=== PATIENT | male | born 1975 | race Caucasian/White ===

== ENCOUNTER 2024-12-30 15:58 | Inpatient (IN) | payer OTHER ==
[~2024-12-30] VITALS: Ht 182.9 cm; Wt 104.5 kg
[2024-12-30 17:17] LABS: BASOPHILS ABSOLUTE AUTO 0.05 K/mm3 (0.00-0.23); BASOPHILS PERCENT AUTO 1 % (0-2); EOSINOPHILS ABSOLUTE AUTO 0.08 K/mm3 (0.00-0.68); EOSINOPHILS PERCENT AUTO 1 % (0-6); Hematocrit 40.3 % (37.0-53.0); Hemoglobin 14.3 g/dL (13.5-17.5); IMMATURE GRAN ABSOLUTE AUTO 0.13 K/mm3 (0.00-0.10); IMMATURE GRAN PERCENT AUTO 2 % (0-1); LYMPHOCYTES ABSOLUTE AUTO 1.16 K/mm3 (0.84-5.20); LYMPHOCYTES PERCENT AUTO 14 % (21-46); MONOCYTES ABSOLUTE AUTO 0.58 K/mm3 (0.16-1.47); MONOCYTES PERCENT AUTO 7 % (4-13); Mean Corpuscular HGB Conc 35.5 g/dL (31.5-36.5); Mean Corpuscular Volume 85 fL (80-100); NEUTROPHILS ABSOLUTE AUTO 6.24 K/mm3 (1.96-9.15); NEUTROPHILS PERCENT AUTO 76 % (41-73); NRBC ABSOLUTE 0.00 K/mm3 (0.00-0.02); NRBC Auto 0.0 /100 WBC (0.0-0.2); Platelet Count 168 K/mm3 (150-400); RDW Coefficient Variation 12.8 % (11.7-14.2); RDW Standard Deviation 39.7 fL (35.1-46.3)
[2024-12-30 17:30] LABS: Prothrombin Time Results 11.5 Sec (9.7-11.5)
[2024-12-30 17:37] LABS: Alanine Aminotransfer (ALT/SGP 133.0 U/L (12-78); Albumin, Blood 3.4 g/dL (3.4-5.0); Albumin/Globulin Ratio 1.2 (0.8-1.8); Anion Gap 11.0 mmol/L (3-11); Aspartate Aminotrans (AST/SGOT 75.0 U/L (12-37); Bilirubin, Total 1.2 mg/dL (0.1-1.0); Blood Urea Nitrogen 14.0 mg/dL (8-24); CO2, Blood 18.0 mmol/L (21-32); Calcium, Blood 7.8 mg/dL (8.5-10.1); Chloride, Blood 110.0 mmol/L (98-108); Creatinine, Blood 0.58 mg/dL (0.60-1.20); Globulin, Blood 2.9 g/dL (2.2-4.0); Glucose, Blood 233.0 mg/dL (70-99); Potassium, Blood 3.2 mmol/L (3.5-5.5); Sodium, Blood 136.0 mmol/L (136-145); Total Protein, Blood 6.3 g/dL (6.4-8.2)
[2024-12-30 17:46] LABS: Source, Urine Clean Catch
[2024-12-30 17:53] LABS: Bilirubin, Urine Neg (Neg); Color, Urine Yellow (P-Yellow); Glucose Qualitative, Urine 4+ (Neg); Ketones, Urine 4+ (Neg); Leukocyte Esterase, Urine Neg (Neg); Protein, Urine 3+ (Neg); Specific Gravity, Urine 1.025 (1.003-1.022); Urobilinogen, Urine 1+ (Normal)
[2024-12-30 18:02] LABS: White Blood Cells, Urine 0-2 /hpf (0-5)
[2024-12-30 18:03] LABS: Red Blood Cells, Urine Not Seen /hpf (0-2)
[2024-12-30] MEDS ORDERED: NS 1,000 ML IV SCH (19:05)
[2024-12-30] MEDS ORDERED: Labetalol HCL 5 MG/ML 4ML Injection (Single Dose) IV PRN (19:05)
[2024-12-30] MEDS ORDERED: FLU VACC TS2025-26(6MOS UP)/PF 45 MCG/0.5 ML SYRINGE IM SCH (19:10)
[2024-12-30 19:29] LABS: pH Blood Venous 7.35 (7.34-7.37)
[2024-12-30 20:05] VITALS: BP 158/93
[2024-12-30 20:14] VITALS: BP 151/96
[2024-12-30] MEDS ORDERED: NS 1,000 ML IV ONE (21:00)
[2024-12-30] MEDS ORDERED: TOCO1000 PO (21:19)
[2024-12-30] MEDS ORDERED: OMEGA-3 FISH O1 EA21 PO (21:21)
[2024-12-30] MEDS ORDERED: ZESTORETIC 20-251 EA PO (21:22)
[2024-12-30] MEDS ORDERED: ASPI81CH PO (21:23)
[2024-12-30 23:10] LABS: U Amphetamine Screen Not Detected; U Barbiturate Screen Not Detected; U Benzodiazapine Screen Not Detected; U Buprenorphine Screen Not Detected; U Cannabinoids Screen DETECTED; U Cocaine Screen Not Detected; U Methadone Screen Not Detected; U Methamphetamine Screen Not Detected; U Opiates Screen Not Detected; U Oxycodone Screen Not Detected; U Phencyclidine Screen Not Detected
[2024-12-30 23:28] VITALS: BP 175/96
[2024-12-31 04:22] VITALS: BP 175/94
[2024-12-31 06:22] LABS: Alanine Aminotransfer (ALT/SGP 128 U/L (12-78); Albumin, Blood 3.9 g/dL (3.4-5.0); Albumin/Globulin Ratio 1.1 (0.8-1.8); Anion Gap 13 mmol/L (3-11); Aspartate Aminotrans (AST/SGOT 53 U/L (12-37); Bilirubin, Total 1.7 mg/dL (0.1-1.0); Blood Urea Nitrogen 13 mg/dL (8-24); CHOL/HDL RATIO 9.5; CO2, Blood 21 mmol/L (21-32); Calcium, Blood 9.3 mg/dL (8.5-10.1); Chloride, Blood 101 mmol/L (98-108); Cholesterol 304 mg/dL (50-200); Creatinine, Blood 0.62 mg/dL (0.60-1.20); Globulin, Blood 3.4 g/dL (2.2-4.0); Glucose, Blood 230 mg/dL (70-99); HDL Cholesterol 32 mg/dL (>39); LDL/HDL RATIO 6.7; Low Density Lipoprotein Chol 216 mg/dL (0-110); Potassium, Blood 3.2 mmol/L (3.5-5.5); Sodium, Blood 132 mmol/L (136-145); Total Protein, Blood 7.3 g/dL (6.4-8.2); Triglycerides 282 mg/dL (30-160); Very Low Density Lipoprot Chol 56 mg/dL (6-32)
--- NOTE | 2024-12-31 06:26 | NUR ---
ADMISSION AND SHIFT SUMMARY ASSUMED CARE AT 1999. A/Ox4, ELEVATED SBP, OTHER VSS ON RA. NORMAL SINUS RHYTHM ON TELE. PT REPORTS CONTINUED BLURRY VISION AND REDUCED PERIPHERAL VISION AT R EYE. NO OTHER DEFICITS NOTED; SCORING 1 ON NIH SCALE. PT UP TO RESTROOM WITH SBA. PT STATED, "I DON'T TAKE CARE OF MYSELF", DENIES HAVING A PRIMARY CARE PROVIDER. PT CALLS APPROPRIATELY, CALL LIGHT IN REACH.
[2024-12-31] MEDS ORDERED: Insulin Human Lispro 100 Units/ML 3ML Syringe SC SCH (07:30)
[2024-12-31 07:34] VITALS: BP 185/97
[2024-12-31] MEDS ORDERED: Enoxaparin 40 MG/0.4 ML SYR SC SCH (09:00)
--- NOTE | 2024-12-31 11:45 | NUR ---
PATIENTS FIRST BLOOD SUGAR FOR THIS NURSE IS 386. DR. CORTES NOTIFIED AND RECOMMENDED STAYING ON THE SLIDING SCALE PATIENT IS NEW TO MEDICATION AND SUGAR CHECKS. PATIENT ATE A REGULAR BREAKFAST THIS AM
[2024-12-31] MEDS ORDERED: MetFORMIN HCl 500 mg PO SCH (14:00)
[2024-12-31 15:15] VITALS: BP 158/100
--- NOTE | 2024-12-31 17:17 | NUR ---
PATIENT RESTED IN BED TODAY, UP TO BATHROOM AND SHOWER TOLERATED. COOPERATIVE WITH CARE. REVIEWED MEDICATIONS WITH PATIENT. CALL LIGHT WITHIN REACH. NO CONCERNS
[2024-12-31 20:41] VITALS: BP 167/104
[2024-12-31] MEDS ORDERED: Insulin Glargine 100 Unit/ML 3 ML SYR SC SCH (21:00)
[2025-01-01 00:19] VITALS: BP 166/93
[2025-01-01 04:46] VITALS: BP 173/107
[2025-01-01 05:31] LABS: Alanine Aminotransfer (ALT/SGP 122.0 U/L (12-78); Albumin, Blood 3.9 g/dL (3.4-5.0); Albumin/Globulin Ratio 1.1 (0.8-1.8); Anion Gap 11.0 mmol/L (3-11); Aspartate Aminotrans (AST/SGOT 53.0 U/L (12-37); Bilirubin, Total 1.6 mg/dL (0.1-1.0); Blood Urea Nitrogen 16.0 mg/dL (8-24); CO2, Blood 23.0 mmol/L (21-32); Calcium, Blood 9.5 mg/dL (8.5-10.1); Chloride, Blood 103.0 mmol/L (98-108); Creatinine, Blood 0.67 mg/dL (0.60-1.20); Globulin, Blood 3.5 g/dL (2.2-4.0); Glucose, Blood 154.0 mg/dL (70-99); Magnesium, Blood 2.0 mg/dL (1.6-2.4); Potassium, Blood 3.7 mmol/L (3.5-5.5); Sodium, Blood 133.0 mmol/L (136-145); Total Protein, Blood 7.4 g/dL (6.4-8.2)
--- NOTE | 2025-01-01 06:11 | NUR ---
A/Ox4, ELEVATED BP, OTHER VSS ON RA. PT DENIES PAIN, SOB, NAUSEA. SCORING 1 ON NIHSS DUE TO CONTINUED PERIPHERAL VISION LOSS AT R EYE. PT REPORTS BLURRY VISION WELL. PT CONCERNED ABOUT HIS LOSS OF APPETITE. NO ACUTE CHANGES OVERNIGHT. PT CALLS APPROPRIATELY, CALL LIGHT IN REACH.
[2025-01-01] MEDS ORDERED: Labetalol HCL 5 MG/ML 4ML Injection (Single Dose) IV PRN (06:25)
[2025-01-01 07:11] VITALS: BP 153/92
[2025-01-01] MEDS ORDERED: AMLO10 PO (11:43)
[2025-01-01] MEDS ORDERED: CLOP75 PO (11:43)
[2025-01-01] MEDS ORDERED: JARDIANCE10 MG PO (11:43)
[2025-01-01] MEDS ORDERED: ATOR80 PO (11:43)
[2025-01-01] MEDS ORDERED: BASAGLAR K100 UNIT/1 SC (11:44)
[2025-01-01] MEDS ORDERED: HUMALOG JU100 UNIT/2 (11:44)
[2025-01-01] MEDS ORDERED: LOSA25 PO (11:45)
[2025-01-01] MEDS ORDERED: SPIR25 PO (11:45)
[2025-01-01] MEDS ORDERED: METF500 PO (11:45)
--- NOTE | 2025-01-01 12:30 | NUR ---
pt discharged the pt verbalized understanding of the dc instructions, the pt was given prescription for his meds [facility] the pt declined a wheelchair transport and ambulated out steady on his feet accompanied by the viscera washer
== END 2025-01-01 15:36 | disposition home or self-care (01) | DRG 66 ==
LOC: ER 15:58 → MEDS 15:59
PROVIDERS: Nurse Practitioner Acute Care; Student in an Organized Health Care Education/Training Program; ADMIT Student in an Organized Health Care Education/Training Program
DX: I63.81 Other cerebral infarction due to occlusion or stenosis of small artery (principal); I10 Essential (primary) hypertension; E87.6 Hypokalemia; E88.810 Metabolic syndrome; R29.701 NIHSS score 1; E78.5 Hyperlipidemia, unspecified; K70.0 Alcoholic fatty liver; H53.47 Heteronymous bilateral field defects; E11.65 Type 2 diabetes mellitus with hyperglycemia; I25.2 Old myocardial infarction; Z87.891 Personal history of nicotine dependence; Z91.148 Patient's other noncompliance with medication regimen for other reason
CPT/HCPCS: 36415; 70551; 76705; 80053; 80061; 81001; 82010; 82803; 82947; 83036; 83605; 83735; 84439; 84443; 84481; 84484; 85025; 85610; 85730; 93005; 93010; 93306; 96372; 99285-25; A9270; G0378; J1650; J1815; J7030

== ENCOUNTER 2025-01-06 12:29 | Inpatient (IN) | payer OTHER ==
[2025-01-06] VITALS (12 sets, daily range): BP systolic 129–160; BP diastolic 80–96
[~2025-01-06] VITALS: Ht 182.9 cm; Wt 103.5 kg
[~2025-01-06 12:29] MED LIST: AMLO10 PO; ASPI81CH PO; ATOR80 PO; BASAGLAR K100 UNIT/1 SC; CLOP75 PO; HUMALOG JU100 UNIT/2; JARDIANCE10 MG PO; LOSA25 PO; METF500 PO; OMEGA-3 FISH O1 EA21 PO; SPIR25 PO; TOCO1000 PO; ZESTORETIC 20-251 EA PO
[2025-01-06 13:16] LABS: BASOPHILS ABSOLUTE AUTO 0.06 K/mm3 (0.00-0.23); BASOPHILS PERCENT AUTO 1 % (0-2); EOSINOPHILS ABSOLUTE AUTO 0.04 K/mm3 (0.00-0.68); EOSINOPHILS PERCENT AUTO 0 % (0-6); Hematocrit 42.3 % (37.0-53.0); Hemoglobin 15.6 g/dL (13.5-17.5); IMMATURE GRAN ABSOLUTE AUTO 0.11 K/mm3 (0.00-0.10); IMMATURE GRAN PERCENT AUTO 1 % (0-1); LYMPHOCYTES ABSOLUTE AUTO 1.81 K/mm3 (0.84-5.20); LYMPHOCYTES PERCENT AUTO 16 % (21-46); MONOCYTES ABSOLUTE AUTO 1.56 K/mm3 (0.16-1.47); MONOCYTES PERCENT AUTO 14 % (4-13); Mean Corpuscular HGB Conc 36.9 g/dL (31.5-36.5); Mean Corpuscular Volume 83 fL (80-100); NEUTROPHILS ABSOLUTE AUTO 7.45 K/mm3 (1.96-9.15); NEUTROPHILS PERCENT AUTO 68 % (41-73); NRBC ABSOLUTE 0.00 K/mm3 (0.00-0.02); NRBC Auto 0.0 /100 WBC (0.0-0.2); Platelet Count 293 K/mm3 (150-400); RDW Coefficient Variation 11.9 % (11.7-14.2); RDW Standard Deviation 36.4 fL (35.1-46.3)
[2025-01-06 14:01] LABS: Alanine Aminotransfer (ALT/SGP 53.0 U/L (12-78); Albumin, Blood 3.5 g/dL (3.4-5.0); Albumin/Globulin Ratio 0.9 (0.8-1.8); Anion Gap 22.0 mmol/L (3-11); Aspartate Aminotrans (AST/SGOT 25.0 U/L (12-37); Bilirubin, Total 1.6 mg/dL (0.1-1.0); Blood Urea Nitrogen 30.0 mg/dL (8-24); CO2, Blood 16.0 mmol/L (21-32); Calcium, Blood 9.5 mg/dL (8.5-10.1); Chloride, Blood 92.0 mmol/L (98-108); Creatinine, Blood 1.33 mg/dL (0.60-1.20); Globulin, Blood 3.9 g/dL (2.2-4.0); Glucose, Blood 199.0 mg/dL (70-99); Potassium, Blood 3.5 mmol/L (3.5-5.5); Sodium, Blood 126.0 mmol/L (136-145); Total Protein, Blood 7.4 g/dL (6.4-8.2)
[2025-01-06] MEDS ORDERED: NS 1,000 ML IV SCH ×2 (14:30→17:00)
[2025-01-06 14:44] LABS: pH Blood Venous 7.46 (7.34-7.37)
[2025-01-06 15:26] LABS: Source, Urine Clean Catch
[2025-01-06 15:31] LABS: Bilirubin, Urine Neg (Neg); Color, Urine Yellow (P-Yellow); Glucose Qualitative, Urine 4+ (Neg); Ketones, Urine 4+ (Neg); Leukocyte Esterase, Urine Neg (Neg); Protein, Urine 1+ (Neg); Specific Gravity, Urine 1.015 (1.003-1.022); Urobilinogen, Urine 1+ (Normal)
[2025-01-06 15:45] LABS: U Amphetamine Screen Not Detected; U Barbiturate Screen Not Detected; U Benzodiazapine Screen Not Detected; U Cannabinoids Screen DETECTED; U Cocaine Screen Not Detected; U Methadone Screen Not Detected; U Methamphetamine Screen Not Detected; U Opiates Screen Not Detected
[2025-01-06 15:46] LABS: U Buprenorphine Screen Not Detected; U Oxycodone Screen Not Detected; U Phencyclidine Screen Not Detected
[2025-01-06] MEDS ORDERED: Ondansetron HCl 2 MG / ML 2ML Vial IV PRN (16:10)
[2025-01-06] MEDS ORDERED: FLU VACC TS2025-26(6MOS UP)/PF 45 MCG/0.5 ML SYRINGE IM SCH (16:10)
[2025-01-06] MEDS ORDERED: Insulin Human Lispro 100 Units/ML 3ML Syringe SC SCH (16:30)
[2025-01-06 18:43] LABS: Anion Gap 19 mmol/L (3-11); Blood Urea Nitrogen 27 mg/dL (8-24); CO2, Blood 19 mmol/L (21-32); Calcium, Blood 9.1 mg/dL (8.5-10.1); Chloride, Blood 95 mmol/L (98-108); Creatinine, Blood 1.15 mg/dL (0.60-1.20); Glucose, Blood 125 mg/dL (70-99); Potassium, Blood 3.4 mmol/L (3.5-5.5); Salicylate <1.7 mg/dL (2.8-20.0); Sodium, Blood 130 mmol/L (136-145)
[2025-01-06 18:44] LABS: Acetaminophen, Random <2.0 ug/mL (10.0-30.0)
[2025-01-06] MEDS ORDERED: D5W-1/2NS 1,000 ML IV SCH (20:00)
[2025-01-06] MEDS ORDERED: Insulin Human Regular 100 UNIT in NS 100 ML IV SCH (20:00)
--- NOTE | 2025-01-06 20:38 | NUR ---
ASSUMED CARE AT 1900. REPORT RECEIVED FROM DAY RN. PT RESTING COMFORTABLY IN BED. DENIES PAIN. ALERT AND ORIENTED TO SELF, PLACE, BUT UNCLEAR ON SITUATION AND DATE. HE APPEARS LETHARGIC. IN A SR, ON ROOM AIR, BP STABLE, HR 110'S. BHB RESULTED, NOTIFIED, NEW ORDERS PLACED AND PT TRANSFERRED TO ICU. REPORT GIVEN TO ICU NURSE AND PT MOVED TO ICU 14 VIA HOSPITAL BED WITH ALL BELONGINGS AT APPROX 2024.
[2025-01-06 23:35] LABS: Anion Gap 20.0 mmol/L (3-11); Blood Urea Nitrogen 22.0 mg/dL (8-24); CO2, Blood 17.0 mmol/L (21-32); Calcium, Blood 8.9 mg/dL (8.5-10.1); Chloride, Blood 97.0 mmol/L (98-108); Creatinine, Blood 1.04 mg/dL (0.60-1.20); Glucose, Blood 157.0 mg/dL (70-99); Potassium, Blood 3.9 mmol/L (3.5-5.5); Sodium, Blood 130.0 mmol/L (136-145)
[2025-01-07] VITALS (33 sets, daily range): BP systolic 115–165; BP diastolic 76–100
[2025-01-07] MEDS ORDERED: Sodium Bicarb 8.4% 1 MEQ/ML 50 ML Vial IV ONE
[2025-01-07] MEDS ORDERED: Sodium Bicarb 8.4% Inj 50 MEQ in Dextrose 5% 1,000 ML IV SCH (00:05)
[2025-01-07] MEDS ORDERED: FentaNYL Citrate 50 MCG/ML 2 ML Injection IV PRN (02:45)
[2025-01-07 03:59] LABS: BASOPHILS ABSOLUTE AUTO 0.06 K/mm3 (0.00-0.23); BASOPHILS PERCENT AUTO 1 % (0-2); EOSINOPHILS ABSOLUTE AUTO 0.05 K/mm3 (0.00-0.68); EOSINOPHILS PERCENT AUTO 1 % (0-6); Hematocrit 36.6 % (37.0-53.0); Hemoglobin 13.4 g/dL (13.5-17.5); IMMATURE GRAN ABSOLUTE AUTO 0.10 K/mm3 (0.00-0.10); IMMATURE GRAN PERCENT AUTO 1 % (0-1); LYMPHOCYTES ABSOLUTE AUTO 1.40 K/mm3 (0.84-5.20); LYMPHOCYTES PERCENT AUTO 18 % (21-46); MONOCYTES ABSOLUTE AUTO 1.06 K/mm3 (0.16-1.47); MONOCYTES PERCENT AUTO 13 % (4-13); Mean Corpuscular HGB Conc 36.6 g/dL (31.5-36.5); Mean Corpuscular Volume 83 fL (80-100); NEUTROPHILS ABSOLUTE AUTO 5.23 K/mm3 (1.96-9.15); NEUTROPHILS PERCENT AUTO 66 % (41-73); NRBC ABSOLUTE 0.00 K/mm3 (0.00-0.02); NRBC Auto 0.0 /100 WBC (0.0-0.2); Platelet Count 233 K/mm3 (150-400); RDW Coefficient Variation 11.9 % (11.7-14.2); RDW Standard Deviation 36.4 fL (35.1-46.3)
[2025-01-07 04:28] LABS: Anion Gap 17.0 mmol/L (3-11); Blood Urea Nitrogen 17.0 mg/dL (8-24); CO2, Blood 20.0 mmol/L (21-32); Calcium, Blood 8.8 mg/dL (8.5-10.1); Chloride, Blood 98.0 mmol/L (98-108); Creatinine, Blood 0.69 mg/dL (0.60-1.20); Glucose, Blood 119.0 mg/dL (70-99); Potassium, Blood 3.1 mmol/L (3.5-5.5); Sodium, Blood 132.0 mmol/L (136-145)
--- NOTE | 2025-01-07 05:16 | NUR ---
SHIFT SUMMERY PT WAS TRANSFERRED FROM PCU AT 2030 FOR INSULIN DRIP. PT HAS BEEN ALERT AND ORIENTED TO SELF AND PLACE OVERNIGHT. HE IS FORGETFUL AT TIMES BUT ABLE TO REORIENT. HE VOIDS IN THE URINAL. HE HAS BEEN ST ON THE TANK OFFICER. BP WNL. AFEBRILE. PT IS ON ROOM AIR, OXYGEN SAT >95%. PT HAS HAD NO ACUTE RESP DISTRESS OR COMPLAINTS OF CHEST PAIN/PRESSURE THIS SHIFT. INSULIN AND BICARB GTT INFUSING PER MD ORDER. PT IS TOLERATING WELL.
--- NOTE | 2025-01-07 07:15 | NUR ---
ASSUMPTION OF CARE REPORT RECEIVED FROM STEPHANIE OTERO. PT ALERT AND ORIENTED X 3. PT MOVING ALL EXTREMITIES WELL AND REPOSTIONENS SELF IN BED. INSULIN DRIP AT 1.5. POTASSIUM REPLACEMENT INFUSING. SODIUM BICARB DRIP INFUSING. WILL MONITOR BLOOD SUGARS Q HOURLY.
[2025-01-07 07:29] LABS: Anion Gap 15.0 mmol/L (3-11); Blood Urea Nitrogen 15.0 mg/dL (8-24); CO2, Blood 22.0 mmol/L (21-32); Calcium, Blood 8.7 mg/dL (8.5-10.1); Chloride, Blood 97.0 mmol/L (98-108); Creatinine, Blood 0.75 mg/dL (0.60-1.20); Glucose, Blood 131.0 mg/dL (70-99); Potassium, Blood 3.8 mmol/L (3.5-5.5); Sodium, Blood 130.0 mmol/L (136-145)
[2025-01-07] MEDS ORDERED: Insulin Glargine-Yfgn 100 Unit/mL 3 ML SYR SC ONE (08:00)
--- NOTE | 2025-01-07 08:00 | NUR ---
PT HISTORY PT IS ALERT AND ORIENTED AT THIS TIME. FOLLOWS COMMANDS APPROPRIATELY. iNSULIN DRIP AT 1.5. C/O 9/10 H/A. FENTANYL 50 MICS GIVEN. PT THEN STATED H/A IS GONE.
[2025-01-07] MEDS ORDERED: Insulin Glargine 100 Unit/ML 3 ML SYR SC ONE (08:10)
[2025-01-07] MEDS ORDERED: Insulin Human Lispro 100 Units/ML 3ML Syringe SC SCH ×2 (08:10→11:30)
[2025-01-07] MEDS ORDERED: Enoxaparin 40 MG/0.4 ML SYR SC SCH (09:00)
--- NOTE | 2025-01-07 09:39 | NUR ---
INSULIN GTT OFF PER DR. CORTES PER DR. CORTES, GIVE PT SHORT ACTING COVERAGE NOW FOR CBG OF 221, AND TURN INSULIN DRIP OFF.
[2025-01-07] MEDS ORDERED: Insulin Human Lispro 100 Units/ML 3ML Syringe SC ONE (09:50)
--- NOTE | 2025-01-07 09:54 | NUR ---
INSULIN DRIP D/C. PT ATE 100% OF BREAKFAST. 0 N/V. STOOD TO URINATE WITH DIZZINESS OR PAIN. INSULIN DRIP D/C. SODIUM BICARB D/C. pT STATES HE'S UNABLE TO READ PERSCRIPTION BOTTLES D/T LT EYE VISION LOSS. PT DOESN'T COOK FOR HIMSELF D/T HIS MOTHER OR SISTER ALWAYS DID IT. PT STAYS IN ROOM AND WAITS FOR SISTER TO BRING HIM MEDICATIONS AND , FLUIDS, OR FOOD. ONE TIME DOSE OF SHORT ACTING INSULIN GIVEN FOR CBG 221. NOTIFIED.
[2025-01-07 10:46] LABS: Anion Gap 13.0 mmol/L (3-11); Blood Urea Nitrogen 14.0 mg/dL (8-24); CO2, Blood 23.0 mmol/L (21-32); Calcium, Blood 8.8 mg/dL (8.5-10.1); Chloride, Blood 99.0 mmol/L (98-108); Creatinine, Blood 0.66 mg/dL (0.60-1.20); Glucose, Blood 205.0 mg/dL (70-99); Potassium, Blood 4.0 mmol/L (3.5-5.5); Sodium, Blood 131.0 mmol/L (136-145)
[2025-01-07 16:35] LABS: Anion Gap 11.0 mmol/L (3-11); Blood Urea Nitrogen 13.0 mg/dL (8-24); CO2, Blood 24.0 mmol/L (21-32); Calcium, Blood 9.1 mg/dL (8.5-10.1); Chloride, Blood 98.0 mmol/L (98-108); Creatinine, Blood 0.65 mg/dL (0.60-1.20); Glucose, Blood 144.0 mg/dL (70-99); Potassium, Blood 4.1 mmol/L (3.5-5.5); Sodium, Blood 129.0 mmol/L (136-145)
--- NOTE | 2025-01-07 16:50 | NUR ---
[facility] CALLED TO [facility]. TRANSFER ORDER TO M/S WITH TELEMETRY ATTAINED. PT WANTS TO LEAVE. NOTIFIED.
--- NOTE | 2025-01-07 17:54 | NUR ---
END OF SHIFT PT FEELING BETTER AND AGREES HE WILL STAY TONIGHT.LAST BS IS 144. 0 C/O H/A OR PAIN. SISTER VISITING. PT STATUS CHANGED TO MS MORALES.
--- NOTE | 2025-01-07 19:45 | NUR ---
ASSESSMENT/ASSUMED CARE PT SITTING UP IN BED. QUIET AND WITHDRAWN. ANSWERS QUESTIONS APPROP. SPEECH CLEAR. ABLE TO TELL ME HE IS IN [place] OR, BUT UNABLE TO SAY WHAT BUILDING HE IS IN. REORIENTED TO PLACE. DENEIS PAIN OR DISCOMFORT. MOVING SELF IN BED. LUNGS CLEAR ON ROOMAIR. RESP EVEN AND NONLABORED. DENIES SOB OR COUGH. HEART RATE SINUS TACH IN THE 110'S. DENIES CHEST PAIN OR PRESSURE. BP STABLE. NO EDEMA. HX OF CVA ONE WEEK AGO. NO WEAKNESS NOTED. VISUAL CUT TO RIGHT SIDE NOTED. BT+ ABD SOFT AND NONTENDER. DENIE N/V. IV RIGHT AC SALINE LOCKED. SITE CLEAR. UNABLE TO DRAW BLOOD, BUT FLUSHING WITHOUT DIFFICULTY. POWER GLIDE TO RIGHT UPPER ARM SALINE LOCKED. SITE CLEAR AND DRSG INTACT. ABLE TO DRAW BLOOD AND FLUSH WITHOUT DIFFICULTY. CALL LIGHT WITHIN REACH.
--- NOTE | 2025-01-07 21:03 | NUR ---
TRANSFER PT TO TRANSFER TO 305. REPORT CALLED TO DERRICK. PT REFUSED FOR US TO CALL AND NOTIFY FAMILY OF TRANSFER.
[2025-01-08] VITALS (7 sets, daily range): BP systolic 143–151; BP diastolic 86–95
--- NOTE | 2025-01-08 04:34 | NUR ---
SHIFT SUMMARY PT TRANSFERED FROM ICU AROUND 2144. ORIENTED TO ROOM. A&Ox4 AND COOPERATIVE OF CARE. PT C/O FAGAN T/O NIGHT. PT REPORTS FAGAN HAS BEEN CONSTANT AND VARIES IN INTENSITY SINCE RECENT CVA. MEDICATED PER EMAR WITH SOME RELIEF. PT HAS BEEN SR IN THE 90'S ON TELE. IND IN ROOM. BED IN LOWEST POSITION AND CALL LIGHT IN REACH.
[2025-01-08 05:23] LABS: BASOPHILS ABSOLUTE AUTO 0.05 K/mm3 (0.00-0.23); BASOPHILS PERCENT AUTO 1 % (0-2); EOSINOPHILS ABSOLUTE AUTO 0.09 K/mm3 (0.00-0.68); EOSINOPHILS PERCENT AUTO 1 % (0-6); Hematocrit 35.7 % (37.0-53.0); Hemoglobin 12.9 g/dL (13.5-17.5); IMMATURE GRAN ABSOLUTE AUTO 0.05 K/mm3 (0.00-0.10); IMMATURE GRAN PERCENT AUTO 1 % (0-1); LYMPHOCYTES ABSOLUTE AUTO 1.42 K/mm3 (0.84-5.20); LYMPHOCYTES PERCENT AUTO 20 % (21-46); MONOCYTES ABSOLUTE AUTO 1.08 K/mm3 (0.16-1.47); MONOCYTES PERCENT AUTO 15 % (4-13); Mean Corpuscular HGB Conc 36.1 g/dL (31.5-36.5); Mean Corpuscular Volume 83 fL (80-100); NEUTROPHILS ABSOLUTE AUTO 4.53 K/mm3 (1.96-9.15); NEUTROPHILS PERCENT AUTO 63 % (41-73); NRBC ABSOLUTE 0.00 K/mm3 (0.00-0.02); NRBC Auto 0.0 /100 WBC (0.0-0.2); RDW Coefficient Variation 11.9 % (11.7-14.2); RDW Standard Deviation 35.7 fL (35.1-46.3)
[2025-01-08 05:25] LABS: Platelet Count 254 K/mm3 (150-400)
[2025-01-08 05:33] LABS: Anion Gap 13.0 mmol/L (3-11); Blood Urea Nitrogen 13.0 mg/dL (8-24); CO2, Blood 24.0 mmol/L (21-32); Calcium, Blood 8.9 mg/dL (8.5-10.1); Chloride, Blood 97.0 mmol/L (98-108); Creatinine, Blood 0.68 mg/dL (0.60-1.20); Glucose, Blood 125.0 mg/dL (70-99); Potassium, Blood 3.5 mmol/L (3.5-5.5); Sodium, Blood 130.0 mmol/L (136-145)
[2025-01-08] MEDS ORDERED: NS 1,000 ML IV SCH (08:00)
[2025-01-08] MEDS ORDERED: Insulin Glargine 100 Unit/ML 3 ML SYR SC SCH (09:00)
--- NOTE | 2025-01-08 13:18 | NUR ---
THIS RN ASSESSED PTS NEURO STATUS. PER ASSESSMENT, PT BELIEVES IT IS 2075. THIS RN ALSO ASSESSED PTS ABILITY TO SEE THE NUMBERS ON HIS INSULIN PEN. PER PT, HE WAS UNABLE TO VISUALIZE ANY NUMBERS ON THE PEN HE TURNED THE DIAL. THESE ASSESSMENTS WERE REPORTED TO DR. CORTES. CASE MANAGEMENT MADE AWARE.
--- NOTE | 2025-01-08 18:37 | NUR ---
PT A/OX3. HE THOUGHT THE YEAR WAS 20[birth year]. HES BEEN PLEASANT AND COOPERATIVE WITH CARE. INDEPENDENT IN ROOM. VSS. PT IS CURRENTLY RESTING IN BED, CALL LIGHT IN REACH. CHEST RISE AND FALL IS SYMMETRICAL. NO ACUTE NEEDS AT THIS TIME.
[2025-01-09 02:31] VITALS: BP 153/94
--- NOTE | 2025-01-09 04:50 | NUR ---
SHIFT SUMMARY PT A&Ox3-4. ABLE TO ANSWER QUESTIONS BUT TAKES TIME TO THINK ABOUT RESPONSE TO SOME QUESTIONS. PT C/O FAGAN DURING THE NIGHT. MEDICATED PER EMAR WITH GOOD EFFECT. PT SLEPT MOST OF THE NIGHT. NO ACUTE CHANGES. VSS. BED IN LOWEST POSITION AND CALL LIGHT IN REACH.
[2025-01-09 05:15] LABS: Anion Gap 9.0 mmol/L (3-11); Blood Urea Nitrogen 12.0 mg/dL (8-24); CO2, Blood 28.0 mmol/L (21-32); Calcium, Blood 9.0 mg/dL (8.5-10.1); Chloride, Blood 97.0 mmol/L (98-108); Creatinine, Blood 0.77 mg/dL (0.60-1.20); Glucose, Blood 136.0 mg/dL (70-99); Potassium, Blood 3.7 mmol/L (3.5-5.5); Sodium, Blood 130.0 mmol/L (136-145)
[2025-01-09 07:38] VITALS: BP 141/90
[2025-01-09 14:30] VITALS: BP 148/87
[2025-01-09] MEDS ORDERED: MetFORMIN HCl 500 mg PO SCH (17:00)
[2025-01-09 19:36] VITALS: BP 136/88
[2025-01-09 23:30] VITALS: BP 135/81
[2025-01-10 04:37] VITALS: BP 154/96
[2025-01-10 05:45] LABS: Anion Gap 11.0 mmol/L (3-11); Blood Urea Nitrogen 12.0 mg/dL (8-24); CO2, Blood 27.0 mmol/L (21-32); Calcium, Blood 9.4 mg/dL (8.5-10.1); Chloride, Blood 96.0 mmol/L (98-108); Creatinine, Blood 0.85 mg/dL (0.60-1.20); Glucose, Blood 124.0 mg/dL (70-99); Potassium, Blood 3.8 mmol/L (3.5-5.5); Sodium, Blood 130.0 mmol/L (136-145)
--- NOTE | 2025-01-10 06:04 | NUR ---
RN shift summary: Patient is alert. He is oriented to self, birthdate and place. Pt two different times could not remember the month, saying May and February. He got the year correct. He stated the president was Obama. 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 No other pysical deficits noted. Patient is independant in room, up to the BR by self. Pt states he gets a horrible headache that waxes and wanes at frequent intervals. Medicated with roxicodone 10mg x2. He was able to sleep after 1st dose, slow relief this am. Call light in reach. Will continue to monitor.
[2025-01-10 07:28] VITALS: BP 155/95
--- NOTE | 2025-01-10 07:46 | NUR ---
01/09/25 SHIFT SUMMARY PATIENT INDEPENDENT IN ROOM, REPORTS SLIGHTLY WORSENING VISION DEFICITS. PATIENT IS ABLE TO NAVIGATE ROOM, BUT UNABLE TO READ MEDICATION LABELS OR FOOD LABELS AT THIS TIME. REPORTS 8 HEADACHE TO TOP OF HEAD, MEDICATED PER MAR, PATIENT DOESN'T RECALL HAVING HEADACHE LATER IN THE SHIFT. ORIENTED 2-3, SOME CONFUSION REGARDING PAST EVENTS THAT WERE VERIFIED BY DAUGHTER ROMAIN. DAUGHTER ENDORSES PATIENT HAS BEEN MAKING SUICIDAL ENTRIES INTO JOURNAL, DENIES ANY SUICIDAL THOUGHTS OR ACTIONS ON ASSESSMENT. DAUGHTER IS WORKING ON GETTING PATIENT ADMITTED TO [facility], HOWEVER AGRONOMY SUPERVISOR AT FACILITY [facility] IS CONCERNED IT CAN TAKE UP TO 30 DAYS FOR ADMIT SPOT. ROMAIN NUMBER IS [phone] AND WOULD LIKE CALLED WITH UPDATES ON DISCHARGE PLAN.
--- NOTE | 2025-01-10 10:41 | NUR ---
DAUGHTER IS VERBALIZING THAT SHE HAD BEEN IN FURTHER CONTACT WITH [facility] AT THE [facility] AND POTENTIALLY ACCEPTED TO A [facility] IN [place]. AGAIN, DAUGHTER WOULD LIKE AN UPDATE CALL FROM CM WHEN PLAN IS UPDATED AND STAFF IS AVAILABLE.
--- NOTE | 2025-01-10 19:37 | NUR ---
PT ALERT AND ORIENTED 2-3, SHORT MEMORY LOSS-FORGETFUL, PT HAS LOSS OF VISION TO RIGHT EYE ADN LEFT EYE WITH POOR VISION-HAS DIFFICULTY READING AND IDENTIFYING ITEMS ON FOOD TRAY, INDEPENDENT IN ROOM-STEADY GAIT, TELEMETRY IN PLACE, ON ORAL ANTIGLYCEMIC'S, C/O OF HEADACHE-TYLENOL MANAGING PAIN WELL. CALL LIGHT IN REACH, PT COMMUNICATES NEEDS AND CALLS FOR ASSISTANCE.
[2025-01-10 19:44] VITALS: BP 142/88
[2025-01-11 00:12] VITALS: BP 151/91
--- NOTE | 2025-01-11 03:19 | NUR ---
Patient alert and oriented, has difficulty seeing, complains of mild headache, refuse tylenol or pain medication at bed time, Later in the night patient holding head and rocking stated that his headache has gotten alot worse, offered pained medication, agreed to take pain meds that were ordered, lungs clear, educated to call when in pain, voiced understanding, independent out of bed, call light in reach, bed in low andlocked position. will continue to monitor
[2025-01-11 04:14] VITALS: BP 157/101
[2025-01-11 05:27] LABS: Anion Gap 12.0 mmol/L (3-11); Blood Urea Nitrogen 13.0 mg/dL (8-24); CO2, Blood 26.0 mmol/L (21-32); Calcium, Blood 9.7 mg/dL (8.5-10.1); Chloride, Blood 94.0 mmol/L (98-108); Creatinine, Blood 0.9 mg/dL (0.60-1.20); Glucose, Blood 139.0 mg/dL (70-99); Potassium, Blood 3.7 mmol/L (3.5-5.5); Sodium, Blood 128.0 mmol/L (136-145)
--- NOTE | 2025-01-11 06:12 | NUR ---
Patient woke up this morning with severe headach, rocking and crying, sodium this morning down to [address] Ford to report headaches and labwork. Pain medication given for headache. new orders in chart. will continue to monitor
[2025-01-11] MEDS ORDERED: NS 500 ML IV SCH (07:00)
[2025-01-11 07:21] VITALS: BP 163/94
[2025-01-11 09:40] VITALS: BP 161/82
[2025-01-11 15:18] VITALS: BP 127/90
--- NOTE | 2025-01-11 17:54 | NUR ---
PT ALERT AND ORIENTED- IS FORGETFUL, C/O HEADACHE THIS AFTERNOON-OXYCODONE MANAGING PAIN WELL, INDEPENDENT IN ROOM. TOLERATING PO INTAKE WELL, PLAN FOR DISCHARGE STILL PENDING HOME VS NURSING FACILITY. CALL LIGHT IN REACH, PT CALLS FOR NEEDS OR ASSISTANCE.
[2025-01-11 20:04] VITALS: BP 143/88
[2025-01-12 02:41] VITALS: BP 155/86
[2025-01-12 05:15] LABS: Anion Gap 11.0 mmol/L (3-11); Blood Urea Nitrogen 13.0 mg/dL (8-24); CO2, Blood 24.0 mmol/L (21-32); Calcium, Blood 9.4 mg/dL (8.5-10.1); Chloride, Blood 99.0 mmol/L (98-108); Creatinine, Blood 0.88 mg/dL (0.60-1.20); Glucose, Blood 141.0 mg/dL (70-99); Potassium, Blood 4.0 mmol/L (3.5-5.5); Sodium, Blood 130.0 mmol/L (136-145)
--- NOTE | 2025-01-12 06:07 | NUR ---
SHIFT SUMMARY PATIENT ADMITTED FOR METABOLIC ENCEPHALOPATHY. PATIENT INDEPENDENT IN ROOM. ALERT AND ORIENTED X2-3. PATIENT WAS HEARD CRYING IN ROOM AT APPROXIMATELY 0100 HOURS, COMPLAINING OF SEVERE HEADACHE. PATIENT MEDICATED PER EMAR WITH RELIEF. NO OTHER ACUTE OVERNIGHT EVENTS OCCURED. BED IN LOWEST POSITION FOR SAFETY. CALL LIGHT WITHIN REACH.
[2025-01-12 07:16] VITALS: BP 150/97
[2025-01-12 15:39] VITALS: BP 141/88
--- NOTE | 2025-01-12 16:56 | NUR ---
PT A/OX3. NOT ORIENTED TO DATE/TIME. PT REPORTED A HEADACHE THIS MORNING WHICH WAS TREATED PER EMAR, HAS NOT REPORTED PAIN SINCE. INDEPENDENT IN ROOM. PT IS CURRENTLY RESTING IN BED, CHEST RISE AND FALL IS SYMMETRICAL. BED IS IN LOWEST POSITION AND CALL LIGHT IS IN REACH. NO ACUTE NEEDS AT THIS TIME.
[2025-01-12] MEDS ORDERED: Polyethylene Glycol 3350 17 gm PO SCH (17:30)
[2025-01-12 19:28] VITALS: BP 131/94
[2025-01-13 04:11] VITALS: BP 167/102
--- NOTE | 2025-01-13 05:20 | NUR ---
SHIFT SUMMARY PATIENT ADMITED FOR METABOLIC ENCEPHALOPATHY. PATIENT ALERT AND ORIENTED X2-3. PATIENT HAD COMPLAINTS OF A HEADACHE AND WAS MEDICATED PER EMAR, OTHERWISE HAS BEEN RESTING INTERMITTENLY THROUGHOUT THE SHIFT. NO ACUTE OVERNIGHT EVENTS. INDEPENDENT IN ROOM. BED IN LOWEST POSITION FOR SAFETY. BED RAILS UP X2. CALL LIGHT WITHIN REACH.
[2025-01-13 07:04] VITALS: BP 165/100
[2025-01-13 09:24] VITALS: BP 155/94
[2025-01-13 13:21] VITALS: BP 136/95
--- NOTE | 2025-01-13 13:25 | NUR ---
PT SITTING UP IN BED WATCHING TV. PT STATES THAT HE HAS A MINOR HEADACHE AND DECLINED PAIN MEDICATIONS AT THIS TIME. BP MEDICATIONS ORDERED BY PROVIDER ADMISTERED. EDUCATION PROVIDED ON MEDICATION, REASON FOR MEDICATION AND POTENTIAL SIDE EFFECTS. EDUCATED PT ON POTENTIAL FOR DIZZINESS WITH STANDING AND TO CALL FOR ASSISTANCE IF THIS OCCURS. PT VERBALIZED UNDERSTANDING OF EDUCATION. WILL REASSESS VITALS IN APPROX 1 HOURS.
[2025-01-13 15:13] VITALS: BP 148/95
[2025-01-13] MEDS ORDERED: DOCU100 PO (15:26)
[2025-01-13] MEDS ORDERED: ACET500 PO (15:26)
[2025-01-13] MEDS ORDERED: METO25ER PO (15:27)
[2025-01-13] MEDS ORDERED: GLIP5 PO (15:27)
[2025-01-13] MEDS ORDERED: OXYC5 PO (15:28)
[2025-01-13] MEDS ORDERED: MIRALAX17 GM PO (15:28)
[2025-01-13] MEDS ORDERED: SENNA LAXATIVE8.6 MG PO (15:29)
[2025-01-13] MEDS ORDERED: SODCHL1 PO (15:29)
--- NOTE | 2025-01-13 15:31 | NUR ---
PT DISCHARGING TO [facility]. PT IS FAVORABLE OF THE DISCHARGE AND THE FACILITY. PROVIDED GENERAL IDEA OF HOW THE DISCHARGE FROM THIS HOSPITAL TO THE ADMISSION TO THE FACILITY WILL GO. PT WILL NEED FREQUENT REMINDERS AND REASSURANCE OF THIS PROCESS. PT DENIED NEEDING ANY PAIN MEDICATIONS PRIOR TO DISCHARGE. POWER GLIDE REMOVED. PT INDEPENDENTLY DRESSING SELF. PLAN FOR CIGARETTE TIPPER APROX 1600. NO ANSWER AT [facility] FOR REPORT. WILL CONTINUE TO CALL FACILITY. ALL PERSONAL ITEMS GATHERED AND ARE AT THE PT SIDE. HARD SCRIPT FOR PAIN MEDICATIONS TO BE SENT WITH PATIENT.
--- NOTE | 2025-01-13 15:47 | NUR ---
REPORT GIVEN TO ROYCE AT [facility]. NO ADDITIONAL QUESTIONS OR CONCERNS AT THIS TIME. TRANSPORTATION PLANNED FOR 1600
--- NOTE | 2025-01-13 17:52 | NUR ---
LATE ENTRY APPROX 1630- PT TRANSPORTED TO VIA WHEEL CHAIR. ALL PERSONAL BELONGINGS LEFT WITH PT. NO CONCERNS AT DISCHARGE.
== END 2025-01-13 16:33 | DRG 637 ==
LOC: ER 12:29 → PCU 12:30 → ICUE 12:30 → PCU 17:26 → ICUE 17:30 → MEDS 01-07 13:24 → ICUE 01-07 13:24 → MEDS 01-07 21:17
PROVIDERS: Emergency Medicine; Internal Medicine; ADMIT Student in an Organized Health Care Education/Training Program
DX: E11.10 Type 2 diabetes mellitus with ketoacidosis without coma (principal); G93.41 Metabolic encephalopathy; I63.233 Cerebral infarction due to unspecified occlusion or stenosis of bilateral carotid arteries; E87.4 Mixed disorder of acid-base balance; N17.9 Acute kidney failure, unspecified; E22.2 Syndrome of inappropriate secretion of antidiuretic hormone; I10 Essential (primary) hypertension; R29.701 NIHSS score 1; E78.5 Hyperlipidemia, unspecified; E86.0 Dehydration; K75.81 Nonalcoholic steatohepatitis (NASH); T38.3X5A Adverse effect of insulin and oral hypoglycemic [antidiabetic] drugs, initial encounter; R45.1 Restlessness and agitation; F32.A Depression, unspecified; E87.8 Other disorders of electrolyte and fluid balance, not elsewhere classified; R06.82 Tachypnea, not elsewhere classified; Z23 Encounter for immunization; Z79.82 Long term (current) use of aspirin; Z79.85 Long-term (current) use of injectable non-insulin antidiabetic drugs; Z79.4 Long term (current) use of insulin; Z79.84 Long term (current) use of oral hypoglycemic drugs; Z79.899 Other long term (current) drug therapy; Z91.048 Other nonmedicinal substance allergy status; Z91.148 Patient's other noncompliance with medication regimen for other reason
CPT/HCPCS: 36415; 70450; 71046; 80048; 80053; 80320; 82010; 82140; 82533; 82550; 82803; 82947; 83605; 83735; 83880; 83930; 83935; 84300; 84484; 84550; 85025; 87040; 93005; 93010; 94762; 96360; 96361; 96372; 96374; 96375; 96376; 97129; 97130; 97161; 97166; 97530; 97535; 99285-25; A9270; C1751; G0378; G0480; J1650; J1815; J2405; J3010; J3480; J7030; J7040; J7042; J7050; J7070